=== PATIENT | male | born 1955 | race Caucasian/White ===

== ENCOUNTER 2018-01-17 16:14 | Observation (INO) ==
[2018-01-17] MEDS ORDERED: Morphine Inj 4 MG/ML Vial IV.PUSH ONE (16:21)
--- NOTE | 2018-01-17 16:45 | XR ---
EXAM DATE: 01/17/2018 4:41 PM EST AGE/SEX: 62 years / Male INDICATIONS: Chest pain and left arm numbness. CLINICAL DATA: This is the patient's initial encounter. Patient reports that signs and symptoms have been present for 1 day and indicates a pain score of 7/10. MEDICAL/SURGICAL HISTORY: None. None. COMPARISON: [facility], CHEST SINGLE AP, 10/29/2015. . FINDINGS: A single AP view of the chest demonstrates the lungs to be symmetrically aerated without evidence of mass, infiltrate or effusion. The cardiomediastinal contours are unremarkable. Osseous structures a re intact. CONCLUSION: No acute cardiopulmonary disease. Electronically signed by: Teto Cottrell MD Board Certified Radiologist 01/17/2018 4:44 PM EST
[2018-01-17 16:49] LABS: Baso # (Auto) 0.1 th/mm3 (0.0-0.2); Baso % (Auto) 0.7 % (0.0-2.0); Eos # (Auto) 0.1 th/mm3 (0.0-0.4); Eos % (Auto) 1.2 % (0.0-4.0); Hemoglobin 16.7 gm/dL (13.0-17.0); Lymph # (Auto) 2.1 th/mm3 (1.0-4.8); Lymph % (Auto) 24.5 % (9.0-44.0); Mean Corpuscular HGB Conc 33.5 % (32.0-36.0); Mean Corpuscular Hemoglobin 29.4 pg (27.0-34.0); Mean Corpuscular Volume 87.9 fL (80.0-100.0); Mean Platelet Volume 8.4 fL (7.0-11.0); Mono # (Auto) 0.6 th/mm3 (0.0-0.9); Mono % (Auto) 7.5 % (0.0-8.0); Neut # (Auto) 5.7 th/mm3 (1.8-7.7); Neut % (Auto) 66.1 % (16.0-70.0); Platelet Count 255 th/mm3 (150-450); Red Blood Count 5.69 mil/mm3 (4.50-5.90); Red Cell Distribution Width 12.5 % (11.6-17.2); White Blood Count 8.6 th/mm3 (4.0-11.0)
--- NOTE | 2018-01-17 16:49 | ED ---
HPI General Chief Complaint: Chest Pain Stated Complaint: chest pain Time Seen by Provider: 01/17/18 16:18 Source: patient Mode of arrival: ambulatory Limitations: no limitations History of Present Illness MD complaint: Reports chest pain STEMI Alert: No Time: 09:00 Duration: constant Onset: during rest Pain location: Reports substernal Severity scale (1-10): 5 Quality: Reports heaviness Pain radiation: Reports LUE Context: Denies recent illness, recent immobilization, recent travel and history of DVT/PE Associated symptoms: Denies nausea, diaphoresis, dyspnea, syncope, palpitations , fever and cough Treatments prior to arrival chest pain: Reports other (Nexium>> no relief. [employer] to make himself burp>>some relief) Related Data Home Medications Medication Instructions Recorded Confirmed esomeprazole magnesium [Nexium] 20 mg PO DAILY 01/17/18 01/17/18 simvastatin 10 mg PO QPM 01/17/18 01/17/18 Allergies Allergy/AdvReac Type Severity Reaction Status Date / Time No Known Allergies Allergy Verified 01/17/18 16:16 Review of Systems ROS: all other systems reviewed are negative [facility] Family History Family History Other Family history in first degree relatives is unremarkable Social History Social History Substance History: No History of Abuse Smoking Status: Current every day smoker Tobacco Type: Cigarettes How Often Do You Have a Drink Containing Alcohol: Never Recent Travel in [facility] within the Last 8 Weeks: No Recent Out of Country Travel within the Last 8 Weeks: No Exam Const General: cooperative, healthy appearing and comfortable Orientation: alert, awake and oriented x3 HENMT Head: normal to inspection, normocephalic and atraumatic Eyes General: appearance normal, both eyes and all related structures Conjunctivae: conjunctivae normal Sclera: sclerae normal EOM: EOM intact bilaterally Neck Neck: normal visual inspection and full ROM Chest Chest: normal inspection of the chest Resp Effort & Inspection: normal respiratory effort and able to speak in complete sentences Auscultation: clear to auscultation bilaterally Cardio Rate: regular rate Rhythm: regular rhythm Heart Sounds: S1 normal and S2 normal GI Inspection: normal to inspection Palpation: soft Back/Spine/Pelvis Cervical Spine: cervical ROM normal Thoracic/Lumbar Spine: thoraco-lumbar ROM normal Skin General: no rashes or lesions noted, turgor normal and dry skin Neuro General: alert, awake, oriented x3, moves all extremities and CN's II-XI intact bilaterally Extrem General: normal to inspection, full ROM and no pedal edema Psych Appearance: grossly normal Mental Status: mental status grossly normal Speech and Movement: speech and movement normal Mood: congruent mood Affect: normal affect Attitude: cooperative Thought Process: normal Thought Content: normal Judgment: judgment good Course Initial Documented Vital Signs Temperature 98.4 F 01/17/18 16:20 Pulse Rate 75 01/17/18 16:20 Respiratory Rate 16 01/17/18 16:20 Blood Pressure 146/93 H 01/17/18 16:20 Pulse Oximetry 95 01/17/18 16:20 Last Documented Vital Signs Temperature 98.4 F 01/17/18 16:20 Pulse Rate 79 01/17/18 16:30 Respiratory Rate 16 01/17/18 16:20 Blood Pressure 146/93 H 01/17/18 16:20 Pulse Oximetry 95 01/17/18 16:30 Critical Care Time Critical Care Time: Yes Total Critical Care Time: 30 Attestation: Time to perform other separately billable procedures was not included in the critical care time. My time did not include minutes spent treating any other patients simultaneously or on activities that did not directly contribute to the patient's treatment. The services I provided to this patient were to treat and/or prevent clinically significant deterioration due to chest pain rule out ACS I provided critical care services requiring my management, as noted below: Chart data review, documentation time, medication orders and management, vital sign assessments/reviewing monitor data, ordering and reviewing lab tests, ordering and interpreting/reviewing x-rays and diagnostic studies, care of the patient and discussion of the patient with the admitting physicians Medical Decision Making MDM Narrative Medical decision making narrative: Patient presents with chest pain that started at 9 AM. It is a pressure-like sensation which radiates to the left arm. He has no other associated symptoms. He has a history of hypercholesterolemia and is a smoker. His story is very concerning. An IV has been started. Aspirin, morphine and Nitropaste have been ordered. I have ordered serial enzymes and EKGs. My plan would be to admit him to the chest pain center if his initial enzymes are negative or admitted to the hospital for cardiology consultation if his enzymes are positive. 5:45 PM The patient reports improvement in his symptoms with aspirin, nitro and morphine. I have discussed the case with [facility]. He will be admitted to the main hospital as his symptoms are very suspicious for ACS. Medical Screen Exam Complete: Yes Emergency Medical Condition: Yes Differential Diagnosis Differential Diagnosis: Differential diagnosis of chest pain includes but is not limited to musculoskeletal pain, pulmonary embolism, acute coronary syndrome , pneumonia, pleurisy Lab Data Lab results reviewed: Yes I reviewed the patient's lab results. Result diagrams: 01/17/18 16:25 01/17/18 16:25 Lab Results 01/17/18 01/17/18 01/17/18 Range/Units 16:25 16:25 16:25 CBC w Diff Auto diff final WBC 8.6 (4.0-11.0) th/mm3 RBC 5.69 (4.50-5.90) mil/mm3 Hgb 16.7 (13.0-17.0) gm/dL Hct 50.0 (39.0-51.0) % MCV 87.9 (80.0-100.0) fL MCH 29.4 (27.0-34.0) pg MCHC 33.5 (32.0-36.0) % RDW 12.5 (11.6-17.2) % Plt Count 255 (150-450) th/mm3 MPV 8.4 (7.0-11.0) fL Neut % (Auto) 66.1 (16.0-70.0) % Lymph % (Auto) 24.5 (9.0-44.0) % Lamar % (Auto) 7.5 (0.0-8.0) % Eos % (Auto) 1.2 (0.0-4.0) % Baso % (Auto) 0.7 (0.0-2.0) % Neut # (Auto) 5.7 (1.8-7.7) th/mm3 Lymph # (Auto) 2.1 (1.0-4.8) th/mm3 Lamar # (Auto) 0.6 (0.0-0.9) th/mm3 Eos # (Auto) 0.1 (0.0-0.4) th/mm3 Baso # (Auto) 0.1 (0.0-0.2) th/mm3 WBC Differential . Differential Comment . PT 10.4 (9.8-11.6) sec INR 1.0 Ratio APTT 25.9 (23.4-31.7) sec Sodium 140 (136-145) meq/L Potassium 4.1 (3.5-5.1) meq/L Chloride 105 (98-107) meq/L Carbon Dioxide 30.5 (21.0-32.0) meq/L Anion Gap 5 (5-15) meq/L BUN 22 H (7-18) mg/dL Creatinine 1.20 (0.60-1.30) mg/dL Estimated GFR 61 L (>89) mL/min Random Glucose 119 H (74-106) mg/dL Calcium 8.9 (8.5-10.1) mg/dL Total Bilirubin 0.3 (0.2-1.0) mg/dL AST 18 (15-37) U/L ALT 34 (12-78) U/L Alkaline Phosphatase 74 (45-117) U/L Troponin I 0.05 (0.02-0.05) ng/mL Total Protein 7.3 (6.4-8.2) g/dL Albumin 3.8 (3.4-5.0) g/dL Imaging Data Attestation: I personally reviewed and interpreted this imaging study as follows : Radiologist's impression: Chest X-Ray 01/17/18 16:21 CONCLUSION: No acute cardiopulmonary disease. ECG Data EKG Prior to Arrival: No Attestation: I personally reviewed and interpreted this ECG as follows: (EKG shows a sinus rhythm with a rate of 75. No acute STT wave changes.) Discharge Plan Discharge Disposition Patient Disposition: ED Admit(ED Internal Use Only) Discharge Order Discharge Orders: ED Use Only Admit Order (Routine); Ordered 01/17/18 Ordered By: Sabra Goncalves Discharge Details Diagnosis: Chest pain Physicians Team ED Provider: Sabra Goncalves Primary Care Provider: Patrizia Randle Attending Provider: Teto Gonsalves ED Status: Admitted Observation Patient
[2018-01-17 16:56] LABS: Chloride 105 meq/L (98-107); Potassium 4.1 meq/L (3.5-5.1); Sodium 140 meq/L (136-145)
[2018-01-17 16:59] LABS: Calcium 8.9 mg/dL (8.5-10.1)
[2018-01-17 17:00] LABS: Activated Partial Thrombo Time 25.9 sec (23.4-31.7); Albumin 3.8 g/dL (3.4-5.0); Anion Gap 5 meq/L (5-15); Blood Urea Nitrogen 22 mg/dL (7-18); Carbon Dioxide 30.5 meq/L (21.0-32.0); Glucose,Random 119 mg/dL (74-106); Prothrombin Time 10.4 sec (9.8-11.6)
[2018-01-17 17:03] LABS: Alanine Aminotransferase 34 U/L (12-78); Aspartate Aminotransferase 18 U/L (15-37); Glomerular Filtration Rate 61 mL/min (>89)
[2018-01-17 17:05] LABS: Total Protein 7.3 g/dL (6.4-8.2)
[2018-01-17 17:06] LABS: Alkaline Phosphatase 74 U/L (45-117)
[2018-01-17 17:08] LABS: Troponin I 0.05 ng/mL (0.02-0.05)
[2018-01-17] MEDS ORDERED: Acetaminophen 500 MG Tablet PO PRN (18:00)
--- NOTE | 2018-01-17 18:01 | P.HP ---
History of Present Illness Primary Care Physician: Patrizia Randle MD Chief Complaint: Chest pain History of Present Illness: This is a 62-year-old male patient with a known medical history of GERD and hyperlipidemia who presented to the ED with complaints of chest pain. Patient states that around 9 AM this morning while laying in bed he developed midsternal chest pain, that was characteristically tight and dull in nature that radiated up his neck and left arm, he states that the pain would come and go, rated a 6 out of 10 at its worst on pain scale, with associated nausea. Denies any associated vomiting, shortness of breath or diaphoresis. He does state that the morphine in the ED helped the pain. Patient does state that he had similar complaints last year, underwent a cardiac nuclear stress test which was reportedly unremarkable. Patient does not follow with the real estate transaction manager. Follows closely with his PCP, last seen 2 months ago, denies any new changes to his medications. Denies any recent illness including fever, chills, cough, headache, vomiting, vomiting, diarrhea or dysuria. Patient does admit to smoking 1 pack/day cigarettes for the last 50 years. Denies any family medical history of cardiovascular disease. Does have hyperlipidemia. History of hypertension. - Diagnosis (1) Chest pain Review of Systems All other systems reviewed negative except as stated in HPI PMFSH - History History Provided By: Patient - Medical History Medical History: Medical History (Last Reviewed 01/17/18 @ 18:01 by Regi Melchor) Chest pain in adult History of hypertension GERD (gastroesophageal reflux disease) Hypercholesterolemia - Surgical History Surgical History: Surgical History (Last Reviewed 01/17/18 @ 18:01 by Regi Melchor) History of sinus surgery Hx of cervical discectomy Hx of toe surgery Hx of tonsillectomy - Family History Family History: Family History (Last Updated 01/17/18 @ 18:24 by Regi Melchor) Other Family history in first degree relatives is unremarkable - Social History I have reviewed the patient's Social History: Yes - Tobacco History Tobacco Use In Past 30 Days: Yes Smoking Status: Current every day smoker Tobacco Type: Cigarettes - Alcohol History How Often Do You Have a Drink Containing Alcohol: Never - Substance Use History Substance History: No History of Abuse - Travel History Recent Travel in the [place] Within the Last 8 Weeks: No Recent Travel Out of the Country Within the Last 8 Weeks: No - Immunization History Tetanus Immunization: Unsure Medications and Allergies Active Medications: Active Medications Sodium Chloride (Ns Flush) 2 ml IV.FLUSH UNSCH PRN PRN Reason: FLUSH AFTER USING IV ACCESS Last Admin: 01/17/18 16:45 Dose: 2 ml Allergies Allergy/AdvReac Type Severity Reaction Status Date / Time No Known Allergies Allergy Verified 01/17/18 16:16 Home Medications Medication Instructions Recorded Confirmed Type esomeprazole magnesium [Nexium] 20 mg PO DAILY 01/17/18 01/17/18 History simvastatin 10 mg PO QPM 01/17/18 01/17/18 History Exam Vital signs: Vital Signs 01/17/18 16:20 01/17/18 16:30 Temperature 98.4 F Pulse Rate 75 79 Respiratory Rate 16 Blood Pressure 146/93 H Pulse Oximetry 95 95 Intake & Output 01/16/18 01/17/18 01/17/18 18:59 06:59 18:59 Weight 90.904 kg Narrative: GENERAL: Well-developed, well-nourished patient in [facility]. SKIN: Warm and dry. No rash. HEAD: Normocephalic. Atraumatic. EYES: Pupils equal and round. No scleral icterus. No injection or drainage. ENT: No nasal bleeding or discharge. Mucous membranes pink and moist. NECK: Supple. Trachea midline. CARDIOVASCULAR: Regular rate and rhythm. S1, S2 noted. No murmur appreciated. No reproducible chest pain to palpation. RESPIRATORY: No accessory muscle use. Clear to auscultation. Breath sounds equal bilaterally. GASTROINTESTINAL: Abdomen soft, non-tender, nondistended. Normoactive bowel sounds x4. MUSCULOSKELETAL: No obvious deformities. Extremities without clubbing, cyanosis , or edema. NEUROLOGICAL: Awake and alert. No obvious cranial nerve deficits. Motor grossly within normal limits. 5/5 muscle strength in bilateral upper and lower extremities. Normal speech. PSYCHIATRIC: Appropriate mood and affect; insight and judgment normal. Results - Labs CBC & Chem 7: 01/17/18 16:25 01/17/18 16:25 Labs: Laboratory Results - last 24 hr 01/17/18 01/17/18 01/17/18 16:25 16:25 16:25 CBC w Diff Auto diff final WBC 8.6 RBC 5.69 Hgb 16.7 Hct 50.0 MCV 87.9 MCH 29.4 MCHC 33.5 RDW 12.5 Plt Count 255 MPV 8.4 Neut % (Auto) 66.1 Lymph % (Auto) 24.5 Nash % (Auto) 7.5 Eos % (Auto) 1.2 Baso % (Auto) 0.7 Neut # (Auto) 5.7 Lymph # (Auto) 2.1 Nash # (Auto) 0.6 Eos # (Auto) 0.1 Baso # (Auto) 0.1 WBC Differential . Differential Comment . PT 10.4 INR 1.0 APTT 25.9 Sodium 140 Potassium 4.1 Chloride 105 Carbon Dioxide 30.5 Anion Gap 5 BUN 22 H Creatinine 1.20 Estimated GFR 61 L Random Glucose 119 H Calcium 8.9 Total Bilirubin 0.3 AST 18 ALT 34 Alkaline Phosphatase 74 Troponin I 0.05 Total Protein 7.3 Albumin 3.8 - Imaging Impressions Chest X-Ray 01/17/18 16:21 CONCLUSION: No acute cardiopulmonary disease. Caprini VTE Risk Assessment Caprini VTE Risk Assessment: Moderate/High Risk (score >= 2) Caprini Risk Assessment Model: Point Value = 1 Point Value = 2 Point Value = 3 Point Value = 5 Age 41-60 Minor surgery BMI > 25 kg/m2 Swollen legs Varicose veins or History of unexplained or recurrent spontaneous Oral contraceptives or hormone replacement Sepsis (< 1 month) Serious lung disease, including pneumonia (< 1 month) Abnormal pulmonary function Acute myocardial infarction Congestive heart failure (< 1 month) History of inflammatory bowel disease Medical patient at bed rest Age 61-74 Arthroscopic surgery Major open surgery (> 45 min) Laparoscopic surgery (> 45 min) Malignancy Confined to bed (> 72 hours) Immobilizing plaster cast Central venous access Age >= 75 History of VTE Family history of VTE Factor V Leiden Prothrombin [id number] Lupus anticoagulant Anticardiolipin antibodies Elevated serum homocysteine Heparin-induced thrombocytopenia Other congenital or acquired thrombophilia Stroke (< 1 month) Elective arthroplasty Hip, pelvis, or leg fracture Acute spinal cord injury (< 1 month) Prophylaxis Regimen: Total Risk Factor Score Risk Level Prophylaxis Regimen 0-1 Low Early ambulation 2 Moderate Order ONE of the following: *Sequential Compression Device (SCD) *Heparin 5000 units SQ BID 3-4 Higher Order ONE of the following medications: *Heparin 5000 units SQ TID *Enoxaparin/Lovenox 40 mg SQ daily (WT < 150 kg, CrCl > 30 mL/min) *Enoxaparin/Lovenox 30 mg SQ daily (WT < 150 kg, CrCl > 10-29 mL/min) *Enoxaparin/Lovenox 30 mg SQ BID (WT < 150 kg, CrCl > 30 mL/min) AND/OR *Sequential Compression Device (SCD) 5 or more Highest Order ONE of the following medications: *Heparin 5000 units SQ TID (Preferred with Epidurals) *Enoxaparin/Lovenox 40 mg SQ daily (WT < 150 kg, CrCl > 30 mL/min) *Enoxaparin/Lovenox 30 mg SQ daily (WT < 150 kg, CrCl > 10-29 mL/min) *Enoxaparin/Lovenox 30 mg SQ BID (WT < 150 kg, CrCl > 30 mL/min) AND *Sequential Compression Device (SCD) Assessment and Plan - Assessment (1) Chest pain Code(s): R07.9 - Chest pain, unspecified Status: Acute - Plan This is a 62-year-old male patient with: Chest pain -Patient has been admitted for observation ACS. Serial EKGs and serial troponins were ordered for ruling out ACS purposes. Initial troponin 0 0.05. -EKG reviewed, normal sinus rhythm with controlled rate, no ST changes to indicate any ischemia at this time. -Cardiac telemetry, monitor for any arrhythmias. -Aspirin daily. Given nitroglycerin and morphine in ED. Available as needed. -Chest x-ray reviewed, no cardiopulmonary disease noted. -CBC and BMP reviewed, essentially unremarkable. -Patient does not follow with a real estate transaction manager. Last nuclear stress test was over a year ago. -Patient will be transferred to the main hospital for closer monitoring T, story is concerning for ACS. -Spoke to patient and at length, they are understanding of plan. -N.p.o. For now. History of hypertension -Patient is not on any home antihypertensives. -Follow blood pressure trends. Hyperlipidemia, chronic -Will continue home statin. -No recent lipid panel. Will check. Tobacco abuse -Patient admits to smoking 1 pack/day cigarettes. -Encouraged cessation. DVT prophylaxis: SCDs. Heparin. (1) Chest pain Qualifiers: Chest pain type: unspecified Qualified Code(s): R07.9 - Chest pain, unspecified
[2018-01-17] MEDS ORDERED: Morphine Inj 4 MG/ML Vial IV.PUSH PRN (19:00)
[2018-01-17 20:31] LABS: Troponin I 0.19 ng/mL (0.02-0.05)
[2018-01-17] MEDS ORDERED: Heparin - SQ 10,000 UNITS/ML Vial SQ SCH (21:00)
[2018-01-17 21:47] LABS: Chol/HDL Ratio 9.21 Ratio; HDL Cholesterol 29.4 mg/dL (40.0-60.0)
[2018-01-17] MEDS ORDERED: Heparin 10,000 UNITS/10 ML Vial (for IV use) IV.PUSH STA (22:49)
[2018-01-17] MEDS ORDERED: Heparin Drip 25,000 UNIT/250 ML BAG IV.CONT PRN (22:49)
[2018-01-17 23:44] LABS: Activated Partial Thrombo Time 26.4 sec (23.4-31.7); INR 1.1 Ratio; Prothrombin Time 10.8 sec (9.8-11.6)
[2018-01-18 00:01] LABS: Troponin I 0.47 ng/mL (0.02-0.05)
[2018-01-18] MEDS ORDERED: Heparin 10,000 UNITS/10 ML Vial (for IV use) IV.PUSH PRN ×2 (04:50)
[2018-01-18 06:53] LABS: Hematocrit 45.2 % (39.0-51.0); Hemoglobin 15.8 gm/dL (13.0-17.0); Mean Corpuscular HGB Conc 34.9 % (32.0-36.0); Mean Corpuscular Hemoglobin 31.3 pg (27.0-34.0); Mean Corpuscular Volume 89.6 fL (80.0-100.0); Mean Platelet Volume 8.4 fL (7.0-11.0); Platelet Count 212 th/mm3 (150-450); Red Blood Count 5.05 mil/mm3 (4.50-5.90); Red Cell Distribution Width 13.8 % (11.6-17.2); White Blood Count 9.6 th/mm3 (4.0-11.0)
--- NOTE | 2018-01-18 07:15 | ECG ---
Date Performed: 01/17/2018 Time Performed: 23:01:22 PTAGE: 62 years EKG: Sinus rhythm . Normal ECG PREVIOUS TRACING : 01/17/2018 16.20 No significant change from previous tracing noted. DOCTOR: Angel Macias Interpretating Date/Time 01/18/2018 07:14:38
[2018-01-18] MEDS ORDERED: Pantoprazole Sodium 20 MG DR Tablet PO SCH (09:00)
[2018-01-18] MEDS ORDERED: Aspirin 325 MG Tablet PO SCH (09:00)
[2018-01-18] MEDS ORDERED: fentaNYL Citrate Inj 100 MCG/2 ML Ampul IV.PUSH SCH (10:45)
[2018-01-18] MEDS ORDERED: Sod Chloride 0.9% Inj 1,000 ML IV.CONT SCH ×2 (10:45→16:00)
--- NOTE | 2018-01-18 10:53 | ECG ---
Date Performed: 01/17/2018 Time Performed: 16:20:26 PTAGE: 62 years EKG: Sinus rhythm BORDERLINE LEFT AXIS DEVIATION BORDERLINE ECG PREVIOUS TRACING : 10/29/2015 13.20 No significant change from previous tracing noted. DOCTOR: Angel Macias Interpretating Date/Time 01/18/2018 10:51:40
[2018-01-18 12:02] VITALS: RESP 18
--- NOTE | 2018-01-18 12:06 | MB ---
cc: Angel Macias MD DATE: 01/18/2018 REASON FOR CONSULTATION: Chest pain, abnormal troponin levels. HISTORY OF PRESENT ILLNESS: The patient is a 62-year-old white male with a history of hyperlipidemia, hypertension, gastroesophageal reflux disease, cervical radiculopathy who was in his usual state of health up until 9 a.m. yesterday when he began to experience fairly severe substernal chest tightness radiating to his left arm and neck associated with nausea. The chest discomfort persisted in a constant fashion for most of the day, finally relieved around 4:30 p.m. after administration of aspirin and nitroglycerin in the emergency department. The patient cannot recall any other episodes of chest discomfort. He denies pleurisy, dizziness, syncope, near syncope, palpitations, pedal edema, paroxysmal nocturnal dyspnea. PAST MEDICAL HISTORY: 1. Cervical radiculopathy. 2. Hyperlipidemia. 3. Gastroesophageal reflux disease. 4. Hypertension. PAST SURGICAL HISTORY: 1. C-spine surgery. 2. Retina laser surgery. 3. Tonsillectomy. CARDIAC MEDICATIONS AT HOME: Simvastatin 10 mg daily. ALLERGIES: NO KNOWN DRUG ALLERGIES. FAMILY HISTORY: One of the patient's brothers sustained a myocardial infarction at age 50, subsequently undergoing bypass surgery. He has another brother who from congestive heart failure in his 50s. SOCIAL HISTORY: The patient smokes about a pack of cigarettes per day. He denies alcohol abuse. REVIEW OF SYSTEMS: As in history of present illness, otherwise negative or noncontributory. He also denies headache, abdominal pain, melena, dyspepsia, bright red blood per rectum. PHYSICAL EXAMINATION: VITAL SIGNS: Blood pressure 141/84 with a pulse of 63, respirations 15. GENERAL: He is a well-developed, well-nourished, white male in no acute distress. NECK: Jugular venous pressure is normal. Carotid pulses are 2+ bilaterally and without bruits. CHEST: Reveals clear lungs muñoz. CARDIAC: He has a regular rhythm and rate without S3, S4, or murmur. ABDOMEN: He has a soft, nontender abdomen. Bowel sounds are present. There is no definite hepatosplenomegaly. EXTREMITIES: Reveals no clubbing, cyanosis, or edema. Peripheral pulses are normal throughout. LABORATORY DATA: EKG shows normal sinus rhythm, normal EKG. Chest x-ray shows no acute disease. LABORATORY DATA: Includes normal CBC, normal basic metabolic profile, except for glucose 119. Troponin 0.47. Total cholesterol 271, LDL 163, HDL 29, triglycerides 394. IMPRESSION: Abnormal troponin levels, symptoms suggestive of unstable angina in this 62-year-old white male with a history of hypertension, hyperlipidemia, gastroesophageal reflux disease. The patient has been chest pain free since admission. EKGs are normal. CK levels are negative for myocardial infarction. The patient has a number of risk factors for coronary disease. Given the instability of his symptoms, I have recommended he undergo cardiac catheterization with possible percutaneous coronary intervention. The nature of these procedures and potential risks have been outlined. He agrees to proceed. RECOMMENDATIONS: 1. Cardiac catheterization today. 2. Increase his statin therapy given his very suboptimal lipid profile. MD SABRINA Gonzalez/sin , 10:36 AM , 10:45 AM TAWANNA
--- NOTE | 2018-01-18 14:05 | P.PNIM ---
Subjective Interval history: Follow-up for chest pain No chest pain overnight, no palpitations. Denies any shortness of breath, awaiting cardiac catheterization. Physical Exam Vital signs: Last Vital Signs Temp 98.1 F 01/18/18 11:59 Pulse 61 01/18/18 11:59 Resp 18 01/18/18 11:59 BP 130/86 01/18/18 11:59 Pulse Ox 96 01/18/18 11:59 Intake & Output 01/16/18 01/17/18 01/18/18 01/19/18 06:59 06:59 06:59 06:59 Intake Total 0 / 0 Balance 0 / 0 Weight 88.451 kg Narrative: GENERAL: Well-developed, well-nourished patient in [facility]. CARDIOVASCULAR: Regular rate and rhythm. S1, S2 noted. No murmur appreciated. No reproducible chest pain to palpation. RESPIRATORY: No accessory muscle use. Clear to auscultation. Breath sounds equal bilaterally. GASTROINTESTINAL: Abdomen soft, non-tender, nondistended. Normoactive bowel sounds x4. MUSCULOSKELETAL: No obvious deformities. Extremities without clubbing, cyanosis , or edema. NEUROLOGICAL: Awake and alert. No obvious cranial nerve deficits. Motor grossly within normal limits. 5/5 muscle strength in bilateral upper and lower extremities. Normal speech. Results Labs CBC & Chem 7: 01/18/18 04:51 01/17/18 16:25 Imaging Imaging: Impressions Chest X-Ray 01/17/18 16:21 CONCLUSION: No acute cardiopulmonary disease. Assessment and Plan (1) Chest pain: Code(s): R07.9 - Chest pain, unspecified Status: Inactive Plan This is a 62-year-old male with history of GERD, smoker, dyslipidemia presenting to the ED for chest pain. Patient initially presented at p.o. Previous workup included a nuclear stress test last year that was negative. Chest pain, NSTEMI -serial troponin done, peaked at 0.47. EKG shows sinus rhythm, no ST elevation. Continue telemetry, continue aspirin, chest x-ray unremarkable. Cardiology consulted, recommended cardiac catheterization for today. Increase statins, Lipitor 80 mg started, LDL is 163. Continue heparin drip for now. Awaiting cardiac catheterization. History of hypertension-blood pressure in the 140s, will start Coreg. Hyperlipidemia, chronic-suboptimal cholesterol control, LDL 163, increase statins. Tobacco abuse-smokes 1 pack a day, counseled regarding smoking cessation for 5 minutes. DVT prophylaxis: SCDs. Heparin. _ (1) Chest pain Qualifiers: Chest pain type: unspecified Ischemic chest pain type: Qualified Code(s): R07.9 - Chest pain, unspecified
[2018-01-18] MEDS ORDERED: Heparin/NS PF Inj 500 ML ONE (14:50)
[2018-01-18] MEDS ORDERED: fentaNYL Citrate Inj 100 MCG/2 ML Ampul ONE (14:51)
[2018-01-18] MEDS ORDERED: Heparin 10,000 UNITS/10 ML Vial (for IV use) ONE (14:51)
--- NOTE | 2018-01-18 15:56 | CATHPROC ---
[employer] HIS Report Study Information Study Number Admission Scheduled Start Study Start [id number] Jan 17 2018 6:32PM 01/18/2018 Jan 18 2018 2:36PM [facility] Service Cath Endovascular Study Admit Source Facility Department Emergency department [facility] - Tumbler Operator Physician and Clinical Staff Initial Angel Fofana Pigeon Fancier Carla Lozano,PERRI Other cathlab, cathlab Recorder Son Gonzalez RCIS(BS) Scrub Mildred Jackson,RT(R) (BS) Procedures Performed Procedure Location (Site) Vessel Name Coronary Angiograms LCA Left Coronary Coronary Angiograms RCA Right Coronary L Heart Cath LV Gram-hand inj. LV LV Ventricle Wire insertion Radial (right) Radial Art. Equipment Time Sourcing Analyst Description Size Mfg Part Number Used/Scraped TRANSDUCER, JANNY [id number] 14:37 TOLEDO MONIQUE * Used W/STOCKCOCK *[id number] ART 3.5 GUIDE CATHETER [id number] 15:38 [employer] FR 6 Used RUNWAY *[id number] TIG 4.0 GUIDE CATHETER [id number] 15:25 [employer] FR 6 Used CONVEY *[id number] *[id number] 14:37 MALLINCKRODT SYRINGE, ANGIOMAT 150ML 150ML *[id number] Used [facility] CONCEPT DRAPE, RADIAL FEMORAL FULL 14:37 * D2355 *1555899 Used DEVELOPMENT BODY [id number] 14:37 Connectbeam BLANKET,WARM AIR CCL * Used *[id number] 14:37 Connectbeam PACK, CCL CUSTOM * Used *[id number] 14:37 Connectbeam SUPPORT, ARTERIAL ADULT 51537 *1455500 Used [id number] 14:37 Actimagine PACER PEN, SKIN DUAL W/ RULER * Used *[id number] 15:43 [employer] MPA 1 DXTERITY CATHETER FR 6 [id number] Used [id number] 15:25 Trustifi 30 ELENITA INDEFLATOR Used *[id number] BAND, RADIAL COMPRESSION TR [id number] 15:50 [employer]ogurt[employer] MEDICAL 24CM Used SHORT 24 *8416474 BAND, RADIAL COMPRESSION TR [id number] 15:51 [employer] MEDICAL 24CM Used SHORT 24 *[id number] SHEATH, FR6 RADIAL PRELUDE 14:37 Trustifi FR 6 [id number] Used EASE 11CM [id number] 14:37 MERIT MEDICAL WIRE, EXCHANGE 260CM 3MMJ 260CM Used *[id number] 14:37 NAMIC MANIFOLD, 4 PORT * Used *9085643 14:37 NYCOMED OMNIPAQUE, 350 MG, 150ML 150ML [id number] Used CATHETER, FR5 OPTITORQUE [id number] 15:14 TERHomeViva MEDICAL FR 5 Used RADIAL TIG 4.0 *[id number] 15:34 VOL[place]O PRIME WIRE, VERRATA 185CM 185CM Used *[id number] Equipment Model, Serial, Lot Number and Expiration Data Description Model Number Serial Number Lot Number Expiration Date MPA 1 DXTERITY CATHETER [id number] 08-16-2019 History: Current Medications Medication Dosage/Unit Route Frequency Last Date/Time Taken Statins (any) History: Allergies Allergy Reaction No Known Allergies History: Risk Factors Family History of Hypertension Dyslipidemia Previous ME Previous Heart Failure Premature CAD Yes Yes Yes No No Prior Valve Prior PCI Prior CABG Surgery No No No Cerebrovascular Peripheral Artery Chronic Lung On Dialysis Diabetes Disease Disease Disease No No No No No History: Symptoms/Diagnosis Selection Items Chest pain History: Stress Tests Stress or Imaging Studies Performed No History: Other Disease Selection Items HTN History: Other Current Smoker Packs a Day Years Used Pack Years Yes 1 45 45 Labs Hgb (g/dl) Hct (%) WBC (l/cumm) Platelets (thousands) 11.60-17.00 35.00-51.00 4.00-11.00 150.00-450.00 15.8 45.2 9.6 212 Glucose (mg/dl) BUN (mg/dl) Creatinine (mg/dl) BUN:Creatinine (1:x) 74.00-106.00 7.00-18.00 0.50-1.30 10.00-20.00 119 22 1.2 18.3 Na (meq/l) K (meq/l) 136.00-145.00 3.50-5.10 149 4 INR (PTT:PT) 0.90-1.10 1.1 Troponin I (ng/ml) CPK-MB (ng/ML) 0.02-0.05 0.50-3.60 0.47 Not Drawn Medication Medication Total Dose (Bolus/Oral) Medication Total Dosage/Unit 1% XYLOCAINE 2 mL FENTANYL 75 mcg NITRO OINTMENT 2 inches RADIAL COCKTAIL 5 mL (Bolus) VERSED 3 mg Medications (Bolus/Oral) Medication Time Given Dosage/Unit Administered By Reason NITRO OINTMENT 01/18/2018 2:47:54 PM 2 inches Patient arrived on 2 inches NITRO OINTMENT in Left shoulder via Topical. Ordered by Angel Macias. VERSED 01/18/2018 3:05:21 PM 2 mg Hesher, Carla 2 mg VERSED given in lab by Carla Lozano RN in Left Hand via Peripheral IV. Ordered by Duke Macias FENTANYL 01/18/2018 3:06:40 PM 50 mcg Hesher, Carla 50 mcg FENTANYL given in lab by Carla Lozano RN in Left Hand via Peripheral IV. Ordered by Angel Macias. 1% XYLOCAINE 01/18/2018 3:17:06 PM 2 mL Angel Macias 2 mL 1% XYLOCAINE given in lab by Angel Macias in Right Radial via Subcutaneous. Ntg 200mcg Verapamil 2.5mg Heparin RADIAL COCKTAIL 01/18/2018 3:17:33 PM 5 mL (Bolus) Angel Macias 2000U 5 mL (Bolus) RADIAL COCKTAIL given in lab by Angel Macias in Right Radial via Radial. Using [Solution Name]. Reason: Ntg 200mcg Verapamil 2.5mg Heparin 2000U. VERSED 01/18/2018 3:18:22 PM 1 mg Hesher, Carla 1 mg VERSED given in lab by Carla Lozano RN in Left Hand via Peripheral IV. Ordered by Duke Macias FENTANYL 01/18/2018 3:19:34 PM 25 mcg Hesher, Carla 25 mcg FENTANYL given in lab by Carla Lozano RN in Left Hand via Peripheral IV. Ordered by Angel Macias. Medication (Drip) Medication Time Given Dosage/Unit Concentration/Unit Diluent (ml) Solution IV Solutions 01/18/2018 2:47:53 PM 0 mL (IV) 500 NaCl .9 Patient arrived on IV Solutions given by gio powers in Left Hand via Peripheral IV. Pump/Drip F low = 20 ml/hr using NaCl .9. Ordered by Angel Macias. Initial Case Assessment Cardiovascular HR Rhythm NIBP Chest Pain 62 nsr 161/95 0 Edema Present Skin color Skin None Normal Warm Dry Circulatory - Right Pulses Dorsalis Pedis Femoral Radial 2 2 2 Scale (0,1,2,3,4,d) Scale (0,1,2,3,4,d) Neurological State Oriented to time-place- Alert Moves all extremities person Respiration - General Respiration Rate SpO2 (%) (B/min) 15 100 Final Case Assessment Cardiovascular HR Rhythm NIBP Chest Pain 72 nsr 110/72 0 Edema Present Skin color Skin None Normal Warm Dry Circulatory - Right Pulses Dorsalis Pedis Femoral Radial 2 2 2 Scale (0,1,2,3,4,d) Scale (0,1,2,3,4,d) Neurological State Oriented to time-place- Alert Moves all extremities person Respiration - General Respiration Rate SpO2 (%) (B/min) 15 98 Chronological Log Time Study Chronological Log 14:47:26 Patient arrived via Bed. 14:47:26 Patient Name, D.O.B, / Armband Verified By R.N. 14:47:27 Consent signed by the physician and the patient and verified by the Tumbler Operator staff. 14:47:27 Pre-op and post- op instructions given; patient acknowledges understanding of instructions. 14:47:29 Presedation assessment performed by Tumbler Operator RN. 14:47:31 Allens test performed on the right radial and ulnar artery. POSITIVE. 14:47:39 Immediate Presedation assesment performed by physician. 14:47:42 Patient has been NPO for More than 6Hrs. 14:47:42 Skin Breakdown- none per patient 14:47:51 Patient Warmer Placed on the Table. 14:47:52 Sourav Prominences Protected 14:47:52 A # 20 IV was noted in the Hand (left). Grade = 0 14:47:53 A # 20 IV was noted in the Antecubital (right). Grade = 0 Patient arrived on IV Solutions given by cathlab, cathlab in Left Hand via Peripheral IV. Pump/ Drip Flow = 20 ml/hr 14:47:53 using NaCl .9. Ordered by Angel Macias. 14:47:54 Patient arrived on 2 inches NITRO OINTMENT in Left shoulder via Topical. Ordered by Angel Macias. 14:47:55 History and physical on the chart or being dictated. Assessment: Initial Case, HR=62 BPM, Rhythm=nsr, CDLM=540/95 mmhg, Chest Pain=0, Edema=None, [place]=Normal, Skin = Warm, Dry 14:53:36 Right Pulses: Damien Ped=2, Femoral=2, Radial=2 Neurological: State=Alert, Ox3, MONTE Respiration: Resp=15 B/min, LwY3=338 % Vitals capture started with the following parameters, Patient=Adult, Interval=5 min, Initial Pr yrclzm=883 mmHg, 14:53:39 Deflation Rate=5 mmHg, Cuff placed on Right Arm 14:54:16 HR=62 bpm, VMRM=303/95 mmhg, GpX8=118.0 %, Resp=15 B/min, Pain=0, Asya=10, Aguilar=2 14:59:21 HR=62 bpm, XOJH=651/89 mmhg, HnU0=055 %, Resp=15 B/min, Pain=0, Asya=10, Aguilar=2 15:00:44 Reference ECG taken 15:03:19 Right Radial and groin(s) prepped with 2% chlorhexidine, and draped after a 3 min. waiting time. 15:04:20 HR=61 bpm, UDCX=132/78 mmhg, SpO2=99.0 %, Resp=15 B/min, Pain=0, Asya=10, Aguilar=2 15:05:21 2 mg VERSED given in lab by Carla Lozano, PERRI in Left Hand via Peripheral IV. Ordered by Angel Haile. 15:06:40 50 mcg FENTANYL given in lab by Carla Lozano, PERRI in Left Hand via Peripheral IV. Ordered by Angel Macias. 15:07:38 paged 15:09:19 HR=62 bpm, VAAS=819/73 mmhg, SpO2=99.0 %, Resp=11 B/min, Pain=0, Asya=10, Aguilar=2 15:10:03 MD responded 15:10:58 Pressure channel 1 zeroed. 15:13:56 MD arrived. 15:14:09 Contrast Scanned 15:14:10 Immediate Presedation assesment performed by physician. 15:14:16 HR=61 bpm, GLWV=983/74 mmhg, SpO2=98.0 %, Resp=10 B/min, Pain=0, Asya=10, Aguilar=2 Time Out. Correct patient, correct procedure, correct physician, labs, allergies, and equipment verified with logging rafter laborer 15:17:02 team present. Fire risk assesment completed (see hard stop sheet for coding). Time Out Conc urred by MD and individual staff in procedure. 15:17:06 Case Start 15:17:06 2 mL 1% XYLOCAINE given in lab by Angel Macias in Right Radial via Subcutaneous. 15:17:15 Access site was Right Radial Artery . A SHEATH, FR6 RADIAL PRELUDE EASE 11CM FR 6 was advanced into the Radial (right) using the Perc utaneous 15:17:20 technique. 5 mL (Bolus) RADIAL COCKTAIL given in lab by Angel Macias in Right Radial via Radial. Using [So lution Name]. Reason: 15:17:33 Ntg 200mcg Verapamil 2.5mg Heparin 2000U. A CATHETER, FR5 OPTITORQUE RADIAL TIG 4.0 FR 5 was advanced over a wire. OMNIPAQUE, 350 MG, 150 ML 150ML 15:17:44 was used for injections. 15:18:22 1 mg VERSED given in lab by Carla Lozano, PERRI in Left Hand via Peripheral IV. Ordered by Angel Haile. 15:19:34 25 mcg FENTANYL given in lab by Carla Lozano RN in Left Hand via Peripheral IV. Ordered by Angel Macias. 15:19:54 HR=74 bpm, CPSN=608/72 mmhg, SpO2=99.0 %, Resp=17 B/min, Pain=0, Asya=10, Aguilar=2 Recorded Pressure: Ao, HR=69, Condition=Condition 1 15:20:18 (Aorta) Ao 103/68/86 15:20:27 The LCA was injected and visualized at various angles. OMNIPAQUE, 350 MG, 150ML 150ML used . 15:22:19 The RCA was injected and visualized at various angles. OMNIPAQUE, 350 MG, 150ML 150ML used . 15:24:14 HR=71 bpm, XMIN=490/74 mmhg, SpO2=97 %, Resp=12 B/min, Pain=0, Asya=10, Aguilar=2 15:24:20 Activated Clotting Time Drawn After removing the current catheter a TIG 4.0 GUIDE CATHETER CONVEY FR 6 was advanced over a WI RE, EXCHANGE 15:24:41 260CM 3MMJ 260CM. 15:28:21 ACT (Normal Range 90-180) = 261 15:29:17 HR=66 bpm, TPXX=109/62 mmhg, SpO2=94.0 %, Resp=11 B/min, Pain=0, Asya=10, Aguilar=2 15:33:31 A PRIME WIRE, VERRATA 185CM 185CM was inserted via Radial (right). 15:34:13 Pressure channel 1 zeroed. 15:34:16 HR=67 bpm, GAFR=299/60 mmhg, SpO2=98 %, Resp=11 B/min, Pain=0, Asya=10, Aguilar=2 15:34:24 Wire removed After removing the current catheter a ART 3.5 GUIDE CATHETER RUNWAY FR 6 was advanced over a ME OLIVIA WIRE, 15:34:26 VERRATA 185CM 185CM. 15:35:08 Pressure channel 1 zeroed. 15:39:15 HR=67 bpm, COCN=321/72 mmhg, SpO2=98.0 %, Resp=10 B/min, Pain=0, Asya=10, Aguilar=2 15:39:33 A PRIME WIRE, VERRATA 185CM 185CM was inserted via Radial (right). 15:41:10 Interventional wire has crossed the lesion 15:41:31 Flow Wire was was placed in the RCA Mid. The FFR measures ~FFR~ percent. The IFR measures 1 .03. 15:41:55 Flow Wire was was placed in the RCA Dist. The FFR measures ~FFR~ percent. The IFR measures 1.04. 15:42:26 The PRIME WIRE, VERRATA 185CM 185CM was removed. After removing the current catheter a MPA-2 INFINITI CATHETER FR 6 was advanced over a PRIME WI RE, VERRATA 15:42:30 185CM 185CM. 15:44:18 HR=67 bpm, LSDJ=056/72 mmhg, SpO2=97 %, Resp=11 B/min, Pain=0, Asya=10, Aguilar=2 Recorded Pressure: LV, HR=68, Condition=Condition 1 15:44:31 (Left Ventricle) LV 127/7/20 15:44:40 The LV was manually injected with 10 cc's and visualized. OMNIPAQUE, 350 MG, 150ML 150ML us ed. Recorded Pressure: LV, Ao, HR=66, Condition=Condition 1 15:44:55 (Left Ventricle) LV 134/5/20, (Aorta) Ao 131/78/101 15:45:22 Catheter was removed 15:45:31 Case End (Physician broke scrub) Assessment: Final Case, HR=72 BPM, Rhythm=nsr, VHEJ=246/72 mmhg, Chest Pain=0, Edema=None, [place] r=Normal, Skin = Warm, Dry 15:46:11 Right Pulses: Damien Ped=2, Femoral=2, Radial=2 Neurological: State=Alert, Ox3, MONTE Respiration: Resp=15 B/min, SpO2=98 % 15:46:32 Catheter(s) removed without difficulty Radial Compression Device Used. ~VOLUME ML~ mLs of air placed in BAND, RADIAL COMPRESSION TR SH ORT 24 15:46:33 24CM. Affected hand 96 % O2 saturation. 15:46:40 Sterile dressing applied to site 15:46:40 No case complications noted. 15:46:41 Cine recording checked. 15:46:41 Bedside Report will be given. 15:46:44 A Left Heart Cath was performed. 15:49:58 HR=59 bpm, ENLU=960/76 mmhg, SpO2=98.0 %, Resp=16 B/min, Pain=0, Asya=10, Aguilar=2 15:54:16 GMMI=087/78 mmhg, SpO2=98.0 %, Pain=0, Asya=10, Aguilar=2 15:56:07 Vitals capture stopped. 15:56:08 [facility] - Contrast Media Used In Study Contrast Total Opened (mL) Total Used (mL) Total Wasted (mL) Omnipaque 350 110 110 0 End Study - Maximum Contrast Load Max Contrast Load (mL) 368.8 End Study - Radiation Exposure Fluoro Time Fluoro Dose (mGy) Cine Dose (uGym2) (minutes) 9.5 1218 7897 End Study - Patient Disposition Complications Transferred To Interventional Outcome No Telemetry Bed No attempt made
--- NOTE | 2018-01-18 18:10 | MA ---
cc: Angel Macias MD DATE: 01/18/2018 PROCEDURE: Left heart catheterization, selective coronary angiography, left ventriculography, instant wave free ratio (iFR) of the right coronary. PROCEDURE: The patient was brought to the cardiac catheterization laboratory in a fasting state after having signed informed consent. The right radial region was prepped and draped as per policy and anesthetized with 1% lidocaine. Arterial access was obtained via the right radial artery and a 6-Macedonian sheath placed. Coronary arteriography was performed using a [place] catheter. Left ventriculography was done using a multipurpose catheter. IFR measurement was done as described below. There were no apparent immediate complications. A radial artery compression band was applied to his right wrist at the end of the case to achieve good hemostasis. HEMODYNAMIC DATA: Left ventricle 134 with an end diastolic pressure of 15, aorta 131/78 with a mean of 101. CORONARY ARTERIOGRAPHY: The left main is normal. The left anterior descending is a medium size vessel with probably up to 40% proximal stenosis and 50% distal disease where the vessel is small. The LAD gives rise to a small first diagonal and tiny second diagonal, both of which are angiographically normal. The left circumflex is a fairly large vessel with up to 20% proximal stenosis and minimal luminal irregularities in the mid portion. An obtuse marginal arising from the proximal left circumflex has a diffuse ostial to proximal disease resulting in up to 10% stenosis. The right coronary artery is a relatively large vessel, which is diffusely diseased. There appears to be up to 60% proximal stenosis, 50% mid disease, and 40% distal stenosis. LEFT VENTRICULOGRAPHY: Contrast injection of the left ventricle reveals no segmental wall motion abnormalities. Ejection fraction is estimated at 60%. INSTANT WAVE-FREE RATIO MEASUREMENT: Adequate heparin was given to achieve an ACT of 261 seconds. Using a 6-Macedonian ART 3.5 guiding catheter, the ostium of the right coronary was reengaged. Using a Locket pressure wire, the iFR measurement of the proximal disease in the right coronary was measured at 1.04. The wire was advanced into the distal right coronary where the IFR was 1.02. There were no apparent immediate complications. The patient tolerated the procedure well. CONCLUSIONS: 1. Overall, mild to moderate 3-vessel coronary artery disease with no definite high-grade stenosis. 2. Status post IFR measurement of the right coronary, demonstrating absence of hemodynamically significant disease. 3. Normal left ventricular function with estimated ejection fraction of 60%. Angel Macias MD GHR/ct , 03:53 PM , 04:01 PM TAWANNA
[2018-01-18] MEDS ORDERED: Iohexol 350 MG/ML 100 ML Vial (for Cath Lab) IVCONTRAST ONE (18:33)
[2018-01-18] MEDS ORDERED: Iohexol 350 MG/ML 50 ML Vial (for Cath Lab) IVCONTRAST ONE (18:33)
[2018-01-18 21:00] VITALS: O2SAT 95
[2018-01-18 22:19] VITALS: BP 134/79; PULSE 73; TEMP 98.2
== END 2018-01-18 22:15 | disposition home or self-care (01) ==
LOC: PHEDH 16:14 → PHED 16:14 → PHEDH 18:50 → HCIS 19:17
PROVIDERS: ADMIT Hospitalist; ATTEND Hospitalist